=== PATIENT | female | born 1995 | race Caucasian/White ===

== ENCOUNTER 2017-11-14 19:45 | Emergency (ER) | payer SELFPAY ==
[2017-11-14 20:08] VITALS: BP 100/70
[2017-11-14 21:41] LABS: Bilirubin,Urine NEG (Negative); Blood,Urine NEG (Negative); Color,Urine Yellow (Yellow); Mucus,Urine 2+ /HPF; Protein,Urine <15 mg/dL mg/dL (Negative)
--- NOTE | 2017-11-14 23:27 | Ultrasound Report ---
FINAL REPORT PROCEDURE: US OB < = 14 WEEKS FETUS TECHNIQUE: Real-time transabdominal sonography of the uterus, placenta, amniotic fluid, adnexa, and fetus was performed with image documentation. Measurements were obtained to determine age/size. M-mode Doppler was used to document heartbeat. CPT 24795 HISTORY: pain, spotting COMPARISON: No prior studies are available for comparison. FINDINGS: Gestational Sac: A small gestational sac measures 12 millimeters. A yolk sac is identified. No pole is seen. The gestational age would be around 6 weeks. Amniotic fluid: Normal. Cervix: Normal. Right Ovary: Normal. Left Ovary: Not visualized IMPRESSION: A gestational sac is identified within the uterus. The gestational age is around 6 weeks. A yolk sac is seen. No pole is identified at this time. Recheck evaluation with repeat ultrasound in approximately 14 days would be of benefit.
--- NOTE | 2017-11-15 06:49 | Ultrasound Report ---
FINAL REPORT PROCEDURE: US OB < = 14 WEEKS FETUS TECHNIQUE: Real-time transvaginal sonography of the uterus, placenta, amniotic fluid, adnexa, and fetus was performed with image documentation. Measurements were obtained to determine age/size. M-mode Doppler was used to document heartbeat. CPT 95402 HISTORY: pain, spotting COMPARISON: No prior studies are available for comparison. FINDINGS: Gestational Sac: A small gestational sac measures 12 millimeters. A yolk sac is identified. No pole is seen. The gestational age would be around 6 weeks. Amniotic fluid: Normal. Cervix: Normal. Right Ovary: Normal. Left Ovary: Not visualized IMPRESSION: A gestational sac is identified within the uterus. The gestational age is around 6 weeks. A yolk sac is seen. No pole is identified at this time. Recheck evaluation with repeat ultrasound in approximately 14 days would be of benefit.
== END 2017-11-14 23:00 | disposition left against medical advice (07) ==
LOC: ED 19:45
DX: N93.9 Abnormal uterine and vaginal bleeding, unspecified (principal); Z53.21 Procedure and treatment not carried out due to patient leaving prior to being seen by health care provider
CPT/HCPCS: 36415; 76801; 76817; 81001; 84702; 86900; 86901